=== PATIENT | female | born 1975 | race Caucasian/White ===

== ENCOUNTER 2017-12-19 15:12 | Inpatient (IN) | payer MEDICAID ==
[~2017-12-19] VITALS: Ht 170.2 cm; Wt 85.3 kg
[2017-12-19 16:07] LABS: BASOPHILS % (AUTO) 0.5 % (0.0-2.0); HEMATOCRIT 39.6 % (36-46); HEMOGLOBIN 13.3 g/dL (12.0-16.0); LYMPHOCYTES # (AUTO) 2.2 K/uL (1.0-4.8); LYMPHOCYTES % (AUTO) 19.1 % (22.0-44.0); MEAN CORPUSCULAR HEMOGLOBIN 27.3 pg (26.0-34.0); MEAN CORPUSCULAR HGB CONC 33.6 G/dL (31.0-37.0); MEAN CORPUSCULAR VOLUME 81 fL (80-100); MONOCYTES # (AUTO) 0.7 K/uL (0.1-1.0); MONOCYTES % (AUTO) 6.6 % (2.0-9.0); NEUTROPHILS # (AUTO) 8.2 K/uL (1.8-7.7); NEUTROPHILS % (AUTO) 72.8 % (40.0-70.0); PLATELET COUNT (AUTO) 271 K/uL (150-450); RED BLOOD CELL COUNT(AUTO) 4.87 MIL/uL (4.00-5.20); RED CELL DISTRIBUTION WIDTH 15.3 % (11.5-14.5)
[2017-12-19 16:11] LABS: AMPHET/METH SCREEN,URINE POSITIVE (NEGATIVE); BARBITURATE SCREEN, URINE NEGATIVE (NEGATIVE); BENZODIAZEPINES SCREEN,URINE NEGATIVE (NEGATIVE); CANNABINOID SCREEN,URINE NEGATIVE (NEGATIVE); COCAINE SCREEN,URINE NEGATIVE (NEGATIVE); METHADONE SCREEN, URINE NEGATIVE (NEGATIVE); OPIATE SCREEN,URINE NEGATIVE (NEGATIVE); PHENCYCLIDINE SCREEN,URINE NEGATIVE (NEGATIVE)
[2017-12-19 16:18] LABS: ANION GAP 9 mmol/L (8-16); CALCIUM, TOTAL 8.9 mg/dL (8.8-10.5); CARBON DIOXIDE 26 mmol/L (22-29); CHLORIDE 102 mmol/L (98-107); CREATININE 0.74 mg/dL (0.60-1.30); GLOMERULAR FILTR. RATE CALC > 60 mL/min (>60); GLUCOSE,RANDOM 76 mg/dL (70-110); POTASSIUM 3.5 mmol/L (3.5-5.1); SODIUM SERUM 137 mmol/L (136-145); UREA NITROGEN, BLOOD 7 mg/dL (7-18)
[2017-12-19 16:24] LABS: ALANINE AMINOTRANSFERASE 22 U/L (12-78); ALBUMIN 3.3 g/dL (3.4-5.0); ALKALINE PHOSPHATASE 92 U/L (46-116); ASPARTATE AMINOTRANSFERASE 17 U/L (15-37); BILIRUBIN,TOTAL 0.3 mg/dL (0.1-1.0); TOTAL PROTEIN, SERUM 7.7 g/dL (6.4-8.2)
[2017-12-19] MEDS ORDERED: ZOLPIDEM TARTRATE 10 MG TABLET PO PRN (19:00)
[2017-12-19] MEDS ORDERED: HALOPERIDOL 5 MG TABLET PO PRN (19:00)
[2017-12-19 19:50] VITALS: BP 139/77
[2017-12-19] MEDS ORDERED: IBUPROFEN 600 MG TABLET PO PRN (21:30)
[2017-12-19] MEDS ORDERED: ACETAMINOPHEN 325 MG TABLET PO PRN (21:30)
[2017-12-19] MEDS ORDERED: MAG HYDROX/AL HYDROX/SIMETH ES 30 ML SUSPENSION UDCUP PO PRN (21:30)
[2017-12-19] MEDS ORDERED: PETROLATUM,WHITE 71 GM JELLY TP PRN (21:30)
[2017-12-19] MEDS ORDERED: BACITRACIN 28.4 GM OINTMENT TP PRN (21:30)
[2017-12-19] MEDS ORDERED: CloNIDine HCL 0.1 MG TABLET PO PRN (21:30)
[2017-12-19] MEDS ORDERED: BENZOCAINE/MENTHOL LOZENGE MM PRN (21:30)
[2017-12-19] MEDS ORDERED: ONDANSETRON HCL 4 MG TABLET PO PRN (21:30)
[2017-12-19] MEDS ORDERED: MAGNESIUM HYDROXIDE SUSPENSION 30 ML UDCUP PO PRN (21:30)
[2017-12-19] MEDS ORDERED: ALBUTEROL SULFATE HFA 90 MCG/PUFF 8 GM INHALER IH PRN (21:30)
[2017-12-19] MEDS ORDERED: LOPERAMIDE HCL 2 MG CAPSULE PO PRN (21:30)
[2017-12-20 06:15] VITALS: BP 136/96
[2017-12-20 06:43] LABS: CHOL/HDL RATIO 3.1 (3.9-5.7); FREE T4 (FREE THYROXINE) 1.07 ng/dL (0.76-1.46); THYROID STIMULATING HORMONE 1.16 uIU/mL (0.36-3.74)
[2017-12-20] MEDS: LORazepam 2 MG TABLET PO PRN ×2 (06:44→18:11)
[2017-12-20 08:58] VITALS: BP 140/102
[2017-12-20] MEDS: OMEPRAZOLE 20 MG CAPSULE PO SCH (09:24)
[2017-12-20] MEDS: DOCUSATE SODIUM 100 MG CAPSULE PO SCH (09:24)
[2017-12-20] MEDS: NICOTINE 21 MG/24 HOUR PATCH TD SCH (09:26)
[2017-12-20] MEDS: SERTRALINE HCL 50 MG TABLET PO SCH (11:43)
[2017-12-20 18:18] VITALS: BP 127/80
[2017-12-21 05:20] VITALS: BP 127/85
[2017-12-21] MEDS: DOCUSATE SODIUM 100 MG CAPSULE PO SCH (09:49)
[2017-12-21] MEDS: SERTRALINE HCL 50 MG TABLET PO SCH (09:49)
[2017-12-21] MEDS: ATENOLOL 50 MG TABLET PO SCH (09:49)
[2017-12-21] MEDS: OMEPRAZOLE 20 MG CAPSULE PO SCH (09:49)
[2017-12-21] MEDS: NICOTINE 21 MG/24 HOUR PATCH TD SCH (09:49)
[2017-12-21 11:14] VITALS: BP 125/80
[2017-12-21 20:03] VITALS: BP 128/82
[2017-12-22] MEDS: OMEPRAZOLE 20 MG CAPSULE PO SCH (09:01)
[2017-12-22] MEDS: DOCUSATE SODIUM 100 MG CAPSULE PO SCH (09:01)
[2017-12-22] MEDS: SERTRALINE HCL 50 MG TABLET PO SCH (09:01)
[2017-12-22] MEDS: ATENOLOL 50 MG TABLET PO SCH (09:01)
[2017-12-22] MEDS: NICOTINE 21 MG/24 HOUR PATCH TD SCH (09:02)
[2017-12-22 10:30] VITALS: BP 140/91
[2017-12-22] MEDS: LORazepam 2 MG TABLET PO PRN (11:35)
[2017-12-22] MEDS ORDERED: SERT50TA12 PO (13:45)
[2017-12-22] MEDS ORDERED: OMEP20 PO (13:59)
[2017-12-22] MEDS ORDERED: ATEN25TA PO (13:59)
[2017-12-22] MEDS ORDERED: DSS100 PO (13:59)
== END 2017-12-22 15:10 | disposition home or self-care (01) | DRG 751 ==
LOC: EMS 15:12 → 3EI 18:48
DX: F33.2 Major depressive disorder, recurrent severe without psychotic features (principal); F15.10 Other stimulant abuse, uncomplicated; D72.829 Elevated white blood cell count, unspecified; R03.0 Elevated blood-pressure reading, without diagnosis of hypertension; M54.5 Low back pain; F17.210 Nicotine dependence, cigarettes, uncomplicated; F41.9 Anxiety disorder, unspecified; G47.00 Insomnia, unspecified; Z79.899 Other long term (current) drug therapy; Z71.51 Drug abuse counseling and surveillance of drug abuser; Z90.49 Acquired absence of other specified parts of digestive tract; Z91.5 Personal history of self-harm
CPT/HCPCS: 84439; 84443; 99285; G0480